=== PATIENT | male | born 1950 | race Caucasian/White ===

== ENCOUNTER 2017-10-17 13:10 | Day surgery (SDC) | payer OTHER ==
[~2017-10-17] VITALS: Ht 175.3 cm; Wt 95.7 kg
[~2017-10-17 13:10] MED LIST: COUMADIN10 MG PO; COUMADIN7.5 MG PO; LASIX20 MG PO; LIPITOR20 MG PO; NIFEDIPINE ER30 MG PO; PERCOCET 10/1 TABLET PO; ZESTRIL40 MG PO
== END 2017-10-17 14:45 | disposition home or self-care (01) ==
LOC: PAIN 13:10 → SDC 13:30 → PAIN 13:30
PROC: 3E0T3BZ Introduction of Anesthetic Agent into Peripheral Nerves and Plexi, Percutaneous Approach (ICD-10-PCS; principal; 2017-10-17)
DX: M17.0 Bilateral primary osteoarthritis of knee (principal)
CPT/HCPCS: S0020